=== PATIENT | female | born 1975 | race Caucasian/White ===

== ENCOUNTER 2018-02-01 06:29 | Day surgery (SDC) | payer OTHER ==
[~2018-02-01] VITALS: Ht 167.6 cm; Wt 62.8 kg
[~2018-02-01 06:29] MED LIST: DOXY50CA42 PO
[2018-02-01] MEDS ORDERED: FENTANYL PF 250 MCG/5ML ONE (07:17)
[2018-02-01] MEDS ORDERED: MIDAZOLAM 1 MG/ML, 2ML ONE (07:17)
[2018-02-01] MEDS ORDERED: SCOPOLAMINE PATCH, 1.5MG PATCH.TD72 TD ONE (07:30)
[2018-02-01] MEDS ORDERED: ONDANSETRON ODT 8 MG PO ONE (07:30)
[2018-02-01] MEDS ORDERED: ACETAMINOPHEN 500 MG TABLET PO ONE (07:30)
[2018-02-01] MEDS ORDERED: GABAPENTIN 300 MG CAPSULE PO ONE (07:30)
[2018-02-01 07:35] VITALS: BP 110/75
[2018-02-01] MEDS ORDERED: LIDOCAINE-MPF 1%, 2ML ONE (07:46)
[2018-02-01] MEDS ORDERED: BUPIVACAINE/PF-EPI 0.5% 1:200K ONE (08:02)
[2018-02-01 08:23] LABS: HCG UR SG 1.024 (1.003-1.030)
[2018-02-01] MEDS ORDERED: LIDOCAINE-MPF 2% ,5ML ONE (08:27)
[2018-02-01] MEDS ORDERED: CEFAZOLIN 1,000 MG ONE (08:27)
[2018-02-01] MEDS ORDERED: DEXAMETHASONE 4 MG/ML, 5ML ONE (08:27)
[2018-02-01] MEDS ORDERED: PROPOFOL 10 MG/ML, 20ML ONE (08:27)
[2018-02-01] MEDS ORDERED: PROPOFOL 10 MG/ML, 50ML ONE (08:27)
[2018-02-01] MEDS ORDERED: PROPOFOL 50 ML ONE (08:36)
[2018-02-01] MEDS ORDERED: FENTANYL PF 100 MCG/2ML IV PRN (09:00)
[2018-02-01] MEDS ORDERED: OXYcodone 5 MG/5 ML ORAL.SOL UDC PO PRN (09:00)
[2018-02-01] MEDS ORDERED: ONDANSETRON 2MG/ML, 2ML IV PRN (09:00)
[2018-02-01] MEDS ORDERED: DIAZEPAM 5 MG/ML, 2ML IVPush PRN (09:00)
[2018-02-01] MEDS ORDERED: HYDROmorphone 1 MG/ML, 1ML IV PRN (09:00)
[2018-02-01] MEDS ORDERED: ONDANSETRON ODT 8 MG PO PRN (09:00)
[2018-02-01] MEDS ORDERED: OXYcodone 5 MG/5 ML ORAL.SOL UDC ONE (09:24)
[2018-02-01] MEDS ORDERED: FENTANYL PF 100 MCG/2ML ONE (09:24)
[2018-02-01] MEDS ORDERED: ONDANSETRON 2MG/ML, 2ML ONE (09:38)
[2018-02-01] MEDS ORDERED: MEPERIDINE/PF 50 MG/ML ONE (09:43)
[2018-02-01] MEDS ORDERED: MEPERIDINE/PF 25MG/0.5ML IVPush PRN (10:00)
== END 2018-02-01 10:50 | disposition home or self-care (01) ==
LOC: OUT 06:29 → MERGE 10:00 → OUT 10:50
PROVIDERS: ATTEND Surgery
DX: K42.9 Umbilical hernia without obstruction or gangrene (principal); M79.89 Other specified soft tissue disorders; Z98.890 Other specified postprocedural states; Z96.612 Presence of left artificial shoulder joint; Z72.89 Other problems related to lifestyle; Z79.899 Other long term (current) drug therapy
CPT/HCPCS: 27045; 49585; 81025; 88304; J0690; J1100; J2175; J2250; J2704; J3010; J3490; Q0162